=== PATIENT | male | born 1980 | race Caucasian/White ===

== ENCOUNTER 2024-05-07 14:03 | Emergency (ER) | payer BC, SELFPAY ==
[2024-05-07 14:17] VITALS: BP 128/88; PULSE 73; RESP 16; TEMP 37.7; O2SAT 99
--- NOTE | 2024-05-07 14:19 | ED.MALEGU ---
HPI - Male Genitourinary General Chief complaint: Urogenital-Male Stated complaint: STD Test Source: patient and RN notes reviewed Mode of arrival: ambulatory Limitations: no limitations History of Present Illness HPI Narrative: 43-year-old male presented for complaint of concern for STD. He states his girlfriend tested positive for chlamydia. Patient currently denies any symptoms. He endorses a history of STD about a year ago and states he did not go to the three-month follow-up for test of cure. While patient is here he would like a rash on his right upper arm evaluated as well. He states he has had for about 8 months, flares up at times becomes red and itchy. states it is not flared at this time. Denies lip, tongue, or throat swelling, shortness of breath or wheezing. Denies changes to soap, detergent, lotion, or any other exposures. No one else in the house or any contacts with similar symptoms. Related Data Allergies Allergy/AdvReac Type Severity Reaction Status Date / Time No Known Allergies Allergy Verified 05/07/24 14:16 Review of Systems Review of Systems: CONSTITUTIONAL: Denies body aches, fever, chills, or sweats. CARDIOVASCULAR: Denies chest pain, palpitations, or edema. RESPIRATORY: Denies cough or dyspnea. GASTROINTESTINAL: Denies abdominal pain, nausea, vomiting, or diarrhea. GENITOURINARY: denies dysuria, frequency, urgency, hematuria, flank pain SKIN: Reports rash to right bicep MUSCULOSKELETAL: Denies back pain or myalgia. PMFSH Comments At time of signature, I have reviewed and agree with nursing past medical, surgical, social and family history unless otherwise noted. Please see nursing chart for further information. There is no relevant family history pertinent to the presenting complaint Exam Narrative: GENERAL: Well-appearing and in no acute distress. ENT: Mucous membranes pink and moist. NECK: Normal AROM. Supple. CHEST: No respiratory distress. Clear to auscultation. HEART: Regular rate and rhythm. ABDOMEN: Soft, nontender, nondistended, normal active bowel sounds. No CVA tenderness MUSCULOSKELETAL: No bony tenderness. SKIN: Warm, dry, right bicep with skin glue papular rash noted NEURO: No focal deficits. Alert and oriented x3. Gait steady. PSYCH: Normal affect. Course Course Emergency Course: Patient is aware of diagnosis, understands and agrees to treatment plan. Anticipatory guidance given. Patient agrees to follow-up as directed and is aware of reasons to seek care at the emergency department. Portions of this record may have been created with voice recognition software Level of Care: Express Care Visit Vital Signs Vital signs: Reviewed MDM - Male Genitourinary MDM Narrative Medical decision making narrative: Patient presenting with concern for STD. Urine specimen collected for GC, chlamydia, trich. Informed Pt will be contacted w/ results when they become available if they are positive. Discussed with patient that it takes up to 7 days for results of cultures to be released and explained that we may treat empirically at this time. Agreeable to treatment for chlamydia at this time. I have instructed the patient to return to the ER at any time if there are any new or worsening symptoms. The patient expressed understanding of and agreement with this plan. Discussed physical exam findings. Advised supportive measures and signs/symptoms to go to the ER. Pt is appropriate for outpt treatment and f/u. Differential Diagnosis Differential diagnosis: Likely urinary tract infection, urethritis and other (std) Discharge Plan Discharge Clinical Impression: Concern about STD in male without diagnosis, Dermatitis Patient Disposition: Home, Self-Care Condition: Stable Instructions: Antibiotic Form, Chlamydia (ED), Eczema (ED) Additional Instructions: Your urine has been sent off to test for gonorrhea, chlamydia, and trichomonas infections.
[2024-05-07 20:58] LABS: Trichomonas Vag PCR NOT DETECTED (NOT DETECTE)
[2024-05-07 21:20] LABS: Chlamydia trachomatis NOT DETECTED (NOT DETECTE); Neisseria gonorrhoeae PCR NOT DETECTED (NOT DETECTE)
== END 2024-05-07 14:38 | disposition home or self-care (01) ==
PROVIDERS: Emergency Provider Nurse Practitioner Family
DX: Z20.2 Contact with and (suspected) exposure to infections with a predominantly sexual mode of transmission (principal); L30.9 Dermatitis, unspecified
CPT/HCPCS: 87491; 87591; 87661; 99213; G0463